=== PATIENT | male | born 1950 | race Caucasian/White ===

== ENCOUNTER 2024-05-24 18:34 | Emergency (ER) | payer OTHER, SELFPAY ==
[2024-05-24 18:35] VITALS: BP 166/89; PULSE 78; RESP 18; TEMP 36.9; O2SAT 97; BMI 26.4
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
[2024-05-24 19:47] VITALS: BP 144/82; PULSE 68; RESP 18; TEMP 36.6; O2SAT 96
[2024-05-24] MEDS: Diphth,Pertuss(Acell),Tet Vac 0.5 ML Vial IM (19:52)
[2024-05-24] MEDS: BACITRACIN 15 GM Tube 1 APPLIC TOPICAL (19:52)
[2024-05-24] MEDS: HYDROcodone Bitartrate/Apap 5/325 Tablet PO (19:53)
== END 2024-05-24 20:18 | disposition home or self-care (01) ==
PROVIDERS: Emergency Provider Emergency Medicine; PCP Internal Medicine; Visit Provider Emergency Medicine
DX: T20.23XA Burn of second degree of chin, initial encounter (principal); T22.211A Burn of second degree of right forearm, initial encounter; T22.212A Burn of second degree of left forearm, initial encounter; T24.291A Burn of second degree of multiple sites of right lower limb, except ankle and foot, initial encounter; T24.292A Burn of second degree of multiple sites of left lower limb, except ankle and foot, initial encounter; E78.00 Pure hypercholesterolemia, unspecified; Z23 Encounter for immunization; X08.8XXA Exposure to other specified smoke, fire and flames, initial encounter
CPT/HCPCS: 90471; 90715; 99284

== ENCOUNTER → 2024-06-19 | Outpatient (CLI) | payer OTHER, SELFPAY ==
[2024-06-19 16:15] LABS: Free T3 2.4 pg/mL (2.18-3.98); T4 Free Direct 1.01 ng/dL (0.76-1.46)
== END | disposition home or self-care (01) ==
LOC: LAB 14:38
PROVIDERS: PCP Internal Medicine
DX: E03.9 Hypothyroidism, unspecified (principal)
CPT/HCPCS: 36415; 84439; 84443; 84481

== ENCOUNTER 2025-03-20 07:08 | Observation (INO) | payer MEDICARE, SELFPAY ==
[2025-03-08 08:20] LABS: Hematocrit 43.8 % (40-54); Hemoglobin 14.6 g/dL (13.0-16.5); Mean Corp Hgb Conc 33.3 g/dL (32-36); Mean Corpuscular Volume 92.2 fL (80-94); Mean Platelet Vol. 9.3 fl (6.2-12.0); Platelet Count 264 K/mm3 (150-450); RBC Distribution Width CV 11.9 % (11.6-14.6); RBC Distribution Width SD 40.3 fl (35.1-43.9); Red Blood Count 4.75 M/mm3 (4.6-6.2); White Blood Count 6.4 K/mm3 (4.4-11.0)
[2025-03-08 09:44] LABS: Anion Gap 12 (5-15); BUN 13 mg/dL (4-19); BUN/Creat Ratio 12.8 RATIO (10-20); Calcium,Total 9.0 mg/dL (7.6-11.0); Carbon Dioxide 25.3 mmol/L (21.0-32.0); Chloride 103 mmol/L (98-108); Glucose 98 mg/dL (70-99); Potassium 3.9 mmol/L (3.3-5.1)
--- NOTE | 2025-03-11 07:53 | PAT.ANE_ITS ---
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 When Was Last Pacemaker Check QUESTION #4 FULL TEXT: You/Your Family Experience fever (hyperthermia) with Anesthesia Last Oral Intake Last Oral intake: Last Oral Intake NPO since Meds taken in AM with sips of water? Meds patient instructed to take am of surgery PONV PONV - social work instructor: PONV - social work instructor Female No 03/06/25 08:16 HX of Motion Sickness No 03/06/25 08:16 HX of N/V After Surgery No 03/06/25 08:16 Non-Smoker Yes 03/06/25 08:16 Duration of Surgery greater No 03/06/25 08:16 than 60 minutes Number of Risk Factors 1 03/06/25 08:16 PONV Score Low Risk 03/06/25 08:16 Height & Weight Height & Weight: Anesthesia: Height & Weight Height 5 ft 10 in 05/24/24 18:35 Respiratory Assessment Respiratory Assessment - social work instructor: Respiratory Tract Infection Hx - social work instructor Hx Respiratory Tract Infection No 03/06/25 08:16 STOP Sleep Apnea STOP Sleep Apnea - social work instructor: STOP Sleep Apnea - social work instructor Hx Hypertension No 03/06/25 08:16 Hx Sleep Apnea No 03/06/25 08:16 CPAP BIPAP Do you snore loudly (louder No 03/06/25 08:16 than talking or can be heard Do you often feel tired/ No 03/06/25 08:16 fatigued/ sleepy during daytime? Has anyone observed you stop No 03/06/25 08:16 breathing during sleep? STOP Results Negative 03/06/25 08:16 QUESTION #5 FULL TEXT : Do you snore loudly (louder than talking or can be heard through closed doors)? 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 Specify any problems Hx of Preganancy in last 3 N/A 03/06/25 08:16 Months Nurse Filling Out Transfusion [facility] 03/06/25 08:16 & Questions: Date: 03/06/25 03/06/25 08:16 Time: 08:24 03/06/25 08:16 Patient unable to answer at this time (ie. confused, unrespo /Reproduction History /Reproductive History - social work instructor: /Reproductive Hx- social work instructor Hx Now No 03/06/25 08:16 Gestational Age (in weeks): EDC: Hx Hx Para Hx Section [facility] Medical History Wears hearing aid Wears glasses Marijuana use Thyroid disease Prostate disease High cholesterol Gastric reflux Non-smoker History of stress test Hard of hearing Hypercholesteremia Depression PTSD (post-traumatic stress disorder) Arthritis Prostate CA Home Medications ?Medication ?Instructions ?Recorded ?Last Taken ?Type citalopram 10 mg tablet (Celexa) 10 mg PO DAILY Unknown History levothyroxine 100 mcg capsule 100 mcg PO DAILY 5 Unknown History rosuvastatin 10 mg tablet (Crestor) 10 mg PO DAILY Unknown History Allergy/AdvReac Type Severity Reaction Status Date / Time No Known Allergies Allergy Verified 03/06/25 08:14 Surgical History History of appendectomy Social History Smoking Status: Never smoker Audit: Pertinent Findings Pertinent Findings EKG Perinent findings: March 08, 2025. Sinus bradycardia with occasional PVCs. Septal infarct, age undetermined. Recommendation Anesthesia Recommendation Anesthesia recommendation: OPTIMIZED for anesthesia
[2025-03-20] VITALS (12 sets, daily range): BP systolic 110–151; BP diastolic 67–86; PULSE 62–102; RESP 16–18; TEMP 35.4–37.1; O2SAT 94–100; BMI 27.5
--- OUTSIDE RECORDS SUMMARY | 2025-03-20 05:53 | XMS RPT_ITS | CCD ---
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 Date: 02/08/2023 (No Known Allergies) Date Reviewed: 05/08/2020 Reviewed by: Dav Reddy - Fully Assessed Reason for Visit: Population Health Navigation Outreach [3910] Cmt: [employer] Care Gaps Prescriptions as of 02/08/2023 - meloxicam (MOBIC) 15 mg tablet Take 1 tablet by mouth once daily. - tiZANidine (ZANAFLEX) 4 mg tablet Take half to one tablet at bedtime as needed - TRAMADOL HCL (TRAMADOL ORAL) Take by mouth every 6 hours as needed. - simvastatin 20 mg tablet Take 20 mg by mouth daily at bedtime. - citalopram 20 mg tablet Take 20 mg by mouth once daily. - levothyroxine (LEVOTHROID) 88 mcg tablet Take 88 mcg by mouth daily before breakfast. - Lysine (L-LYSINE) 500 mg Cap Take by mouth. 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 Author Type: Gasket Maker Type: Progress Notes Filed: 02/08/2023 10:02 AM Note Text: POPULATION HEALTH NAVIGATION OUTREACH Action/FYI Verify PCP [facility] Patient Identified by Name and : YES, via phone Outreach Outcome/Action Spoke to patient / parent / legal guardian: Patient declined PCP field updated Did you use a PCP flex slot to schedule this appointment? N/A Reason for Outreach Care Gap or Scheduling/Wellness visits Payer: No coverage found. Care Gap Reviewed:: Annual Wellness visit Colorectal Cancer Screening Advance Directive Reminder: Reminder note to check Health Maintenance for items below Health Maintenance items due: ABDOMINAL AORTIC ANEURYSM SCREENING Never done HEPATITIS C SCREENING Never done DTAP,TDAP,TD(1 - Tdap) Never done SHINGRIX VACCINE(1 of 2) Never done PNEUMOCOCCAL: 65+(1 - PCV) Never done COLORECTAL CANCER SCREENING due on 02/14/2014 DIABETES SCREEN due on 02/07/2015 LIPID SCREEN due on 02/07/2017 COVID-19 VACCINE(4 - Booster for Pfizer series) due on 08/18/2021 ADVANCE DIRECTIVE DISCUSSION Never done DEPRESSION ASSESSMENT Never done Navigation Signature: Savita Hubbard MA February 08, 2023 9:20 AM [facility] History of Present illness Narrative 02-08-2023 Savita Hubbard MA - 02/08/2023 9:20 AM EDT Note Date & Type Note Facility 02-08-2023 History of Presen t illness Narrative POPULATION HEALTH NAVIGATION OUTREACH Action/FYI Verify PCP [facility] - PCP updated Patient Identified by Name and : YES, via phone Outreach Outcome/Action Spoke to patient / parent / legal guardian: Patient declined PCP field updated Did you use a PCP flex slot to schedule this appointment? N/A Reason for Outreach Care Gap or Scheduling/Wellness visits Payer: No coverage found. Care Gap Reviewed:: Annual Wellness visit Colorectal Cancer Screening Advance Directive Reminder: Reminder note to check Health Maintenance for items below Health Maintenance items due: ABDOMINAL AORTIC ANEURYSM SCREENING Never done HEPATITIS C SCREENING Never done DTAP,TDAP,TD(1 - Tdap) Never done SHINGRIX VACCINE(1 of 2) Never done PNEUMOCOCCAL: 65+(1 - PCV) Never done COLORECTAL CANCER SCREENING due on 02/14/2014 DIABETES SCREEN due on 02/07/2015 LIPID SCREEN due on 02/07/2017 COVID-19 VACCINE(4 - Booster for Pfizer series) due on 08/18/2021 ADVANCE DIRECTIVE DISCUSSION Never done DEPRESSION ASSESSMENT Never done Navigation Signature: Savita Hubbard MA February 08, 2023 9:20 AM documented in this encounter [facility] Clinical Note 12-09-2022 Note Date & Type Note Facility 12-09-2022 Note Patient Outreach (NE TNAV) THOM RAPP ([id number]) 1950 M Date Time Provider Department 12/09/22 JONELLE RAMÍREZ During your visit today, we recorded the following information about you: Jonelle Ramírez 12/09/2022 11:44 AM Signed POPULATION HEALTH NAVIGATION OUTREACH Action/FYI Need to confirm pcp Left message to review health maintenance. My chart not activated Patient Identified by Name and : NO Outreach Outcome/Action Unable to reach patient: Left message Did you use a PCP flex slot to schedule this appointment? N/A Reason for Outreach Care Gap or Scheduling/Wellness visits Payer: No coverage found. Care Gap Reviewed:: Annual Wellness visit Colorectal Cancer Screening Reminder: Reminder note to check Health Maintenance for items below Health Maintenance items due: ABDOMINAL AORTIC ANEURYSM SCREENING Never done COVID-19 VACCINE(1) Never done HEPATITIS C SCREENING Never done DTAP,TDAP,TD(1 - Tdap) Never done SHINGRIX VACCINE(1 of 2) Never done PNEUMOCOCCAL: 65+(1 - PCV) Never done COLORECTAL CANCER SCREENING due on 02/14/2014 DIABETES SCREEN due on 02/07/2015 LIPID SCREEN due on 02/07/2017 ADVANCE DIRECTIVE DISCUSSION Never done DEPRESSION ASSESSMENT Never done Navigation Signature: Jonelle Ramírez December 09, 2022 11:43 AM Allergies As of Date: 12/09/2022 (No Known Allergies) Date Reviewed: 05/08/2020 Reviewed by: Dav Reddy - Fully Assessed Reason for Visit: Population Health Navigation Outreach [3910] Cmt: [employer] care gap Prescriptions as of 12/09/2022 - meloxicam (MOBIC) 15 mg tablet Take 1 tablet by mouth once daily. - tiZANidine (ZANAFLEX) 4 mg tablet Take half to one tablet at bedtime as needed - TRAMADOL HCL (TRAMADOL ORAL) Take by mouth every 6 hours as needed. - simvastatin 20 mg tablet Take 20 mg by mouth daily at bedtime. - citalopram 20 mg tablet Take 20 mg by mouth once daily. - levothyroxine (LEVOTHROID) 88 mcg tablet Take 88 mcg by mouth daily before breakfast. - Lysine (L-LYSINE) 500 mg Cap Take by mouth. 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 Author Type: ? Type: Progress Notes Filed: 12/09/2022 11:44 AM Note Text: POPULATION HEALTH NAVIGATION OUTREACH Action/FYI Need to confirm pcp Left message to review health maintenance. My chart not activated Patient Identified by Name and : NO Outreach Outcome/Action Unable to reach patient: Left message Did you use a PCP flex slot to schedule this appointment? N/A Reason for Outreach Care Gap or Scheduling/Wellness visits Payer: No coverage found. Care Gap Reviewed:: Annual Wellness visit Colorectal Cancer Screening Reminder: Reminder note to check Health Maintenance for items below Health Maintenance items due: ABDOMINAL AORTIC ANEURYSM SCREENING Never done COVID-19 VACCINE(1) Never done HEPATITIS C SCREENING Never done DTAP,TDAP,TD(1 - Tdap) Never done SHINGRIX VACCINE(1 of 2) Never done PNEUMOCOCCAL: 65+(1 - PCV) Never done COLORECTAL CANCER SCREENING due on 02/14/2014 DIABETES SCREEN due on 02/07/2015 LIPID SCREEN due on 02/07/2017 ADVANCE DIRECTIVE DISCUSSION Never done DEPRESSION ASSESSMENT Never done Navigation Signature: Jonelle Ramírez December 09, 2022 11:43 AM [facility] History of Present illness Narrative 12-09-2022 Jonelle Ramírez - 12/09/2022 11:42 AM EDT Note Date & Type Note Facility 12-09-2022 History of Presen t illness Narrative POPULATION HEALTH NAVIGATION OUTREACH Action/FYI Need to confirm pcp Left message to review health maintenance. My chart not activated Patient Identified by Name and : NO Outreach Outcome/Action Unable to reach patient: Left message Did you use a PCP flex slot to schedule this appointment? N/A Reason for Outreach Care Gap or Scheduling/Wellness visits Payer: No coverage found. Care Gap Reviewed:: Annual Wellness visit Colorectal Cancer Screening Reminder: Reminder note to check Health Maintenance for items below Health Maintenance items due: ABDOMINAL AORTIC ANEURYSM SCREENING Never done COVID-19 VACCINE(1) Never done HEPATITIS C SCREENING Never done DTAP,TDAP,TD(1 - Tdap) Never done SHINGRIX VACCINE(1 of 2) Never done PNEUMOCOCCAL: 65+(1 - PCV) Never done COLORECTAL CANCER SCREENING due on 02/14/2014 DIABETES SCREEN due on 02/07/2015 LIPID SCREEN due on 02/07/2017 ADVANCE DIRECTIVE DISCUSSION Never done DEPRESSION ASSESSMENT Never done Navigation Signature: Jonelle Ramírez December 09, 2022 11:43 AM documented in this encounter [facility] Summary Purpose Family History No Family History Records FoundNo Family History Records FoundNo Family History Records Found Advance Directives No Advanced Directives Records FoundNo Advanced Directives Records FoundNo Advanced Directives Records Found Additional Source Comments (unrecognized sect ion and content) No Status Records FoundNo Status Records FoundNo Status Records Found INFORMATION SOURCE (unrecogn ized section and content) DATE CREATED AUTHOR 05/25/2019 [facility] DATE CREATED AUTHOR AUTHOR'S ORGANIZ ATION 02/09/2023 [facility] DATE CREATED AUTHOR AUTHOR'S ORGANIZ ATION 03/15/2025 [facility] Source Comments (unrecognize d section and content) In the event this informatio n is protected by the Federal Confidentiality of Alcohol and Drug Abuse Patient Records regulations: The Federal rules restrict any use of the information to criminally investigate or prosecute any alcohol or drug abuse patient.[facility] the event this information is protected by the Federal Confidentiality of Alcohol and Drug Abuse Patient Records regulations: The Federal rules restrict any use of the information to criminally investigate or prosecute any alcohol or drug abuse patient.[facility] Reason for Visit (unrecogniz ed section and content) Reason Onset Date Comments Population Health Navigation Outreach 12/09/2022 [employer] care gap Reason Onset Date Comments Population Health Navigation Outreach 02/08/2023 [employer] Care Gaps Care Teams (unrecognized sec tion and content) Nut Former Relationship Specialty Start Date End Date [facility] [address] [place] [address] PCP - General Internal Medicine 05/24/19 Nut Former Relationship Specialty Start Date End Date [facility] [address] [place] [address] PCP - General 02/08/23 FOR RECORDS PERTAINING TO PATIENTS WHO ARE OR HAVE BEEN ENROLLED IN A CHEMICAL DEPENDENCY/SUBSTANCEABUSE PROGRAM, SOME INFORMATION MAY BE OMITTED. This clinical summary was aggregated from multiple sources. Caution should be exercised in using it in the provision of clinical care. This summary normalizes information from multiple sources, and as a consequence, information in this document may materially change the coding, format and clinical context of patient data. In addition, data may be omitted in some cases. CLINICAL DECISIONS SHOULD BE BASED ON THE PRIMARY CLINICAL RECORDS. [facility] [employer] provides no warranty or guarantee of the accuracy or completeness of information in this document.
--- NOTE | 2025-03-20 06:35 | PRE.ANES_ITS ---
ASA Classification* ASA Classification ASA Classification: 2 Assessment & Plan Anesthesia* Anesthesia Assessment Anesthesia Assessment: Discussed sedation and/or anesthesia options, risks, benefits, and alternatives with patient/parents/legal guardian/POA. Questions invited. The patient/parents/legal guardian/POA seems to understand and agrees to proceed with anesthesia plan. Reviewed the physical assessment, medical history, allergy history and patient home medications list prior to surgery/procedure/anesthetic and documented any changes. Performed airway and anesthesia risk assessments. Anesthesia Type Anesthesia Type: General History Source History Obtained from:: Patient and Chart Anesthesia Focused Assessment* Airway Assessment Mouth opens: >3 cm Mallampati Score: II Teeth Condition: Intact Neck Range of motion (ROM): Limited ROM Labs Anesthesia Preop lab: CBC WBC 6.4 K/mm3 (4.4-11.0) 03/08/25 07:38 03/08/25 RBC 4.75 M/mm3 (4.6-6.2) 03/08/25 07:38 03/08/25 Hgb 14.6 g/dL (13.0-16.5) 03/08/25 07:38 03/08/25 Hct 43.8 % (40-54) 03/08/25 07:38 03/08/25 Plt Count 264 K/mm3 (150-450) 03/08/25 07:38 03/08/25 CHEMISTRY Potassium 3.9 mmol/L (3.3-5.1) 03/08/25 07:38 03/08/25 Sodium 140 mmol/L (133-145) 03/08/25 07:38 03/08/25 BUN 13 mg/dL (4-19) 03/08/25 07:38 03/08/25 Creatinine 1.04 mg/dL (0.70-1.20) 03/08/25 07:38 03/08/25 Glucose 98 mg/dL (70-99) 03/08/25 07:38 03/08/25 TSH 4.850 uIU/mL (0.300-4.200) H 03/08/25 07:38 COAG Pre-Assessment Diagnosis/Proposed Procedure Planned Operative Procedure(s): Lap Robotic Radical Prostatectomy Anesthesia History 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 When Was Last Pacemaker Check QUESTION #4 FULL TEXT: You/Your Family Experience fever (hyperthermia) with Anesthesia Last Oral Intake Last Oral intake: Last Oral Intake NPO since Meds taken in AM with sips of water? Meds patient instructed to take am of surgery PONV PONV - developmental mathematics professor: PONV - developmental mathematics professor Female No 03/06/25 08:16 HX of Motion Sickness No 03/06/25 08:16 HX of N/V After Surgery No 03/06/25 08:16 Non-Smoker Yes 03/06/25 08:16 Duration of Surgery greater No 03/06/25 08:16 than 60 minutes Number of Risk Factors 1 03/06/25 08:16 PONV Score Low Risk 03/06/25 08:16 Height & Weight Height & Weight: Anesthesia: Height & Weight Height 5 ft 10 in 05/24/24 18:35 Respiratory Assessment Respiratory Assessment - developmental mathematics professor: Respiratory Tract Infection Hx - developmental mathematics professor Hx Respiratory Tract Infection No 03/06/25 08:16 STOP Sleep Apnea STOP Sleep Apnea - developmental mathematics professor: STOP Sleep Apnea - developmental mathematics professor Hx Hypertension No 03/06/25 08:16 Hx Sleep Apnea No 03/06/25 08:16 CPAP BIPAP Do you snore loudly (louder No 03/06/25 08:16 than talking or can be heard Do you often feel tired/ No 03/06/25 08:16 fatigued/ sleepy during daytime? Has anyone observed you stop No 03/06/25 08:16 breathing during sleep? STOP Results Negative 03/06/25 08:16 QUESTION #5 FULL TEXT : Do you snore loudly (louder than talking or can be heard through closed doors)? Tobacco Use History Tobacco Use History - developmental mathematics professor: Tobacco Use History - developmental mathematics professor Tobacco Use Smoking Status Never smoker 03/06/25 08:16 Hx Tobacco Use No 03/06/25 08:16 Years Smoking Packs Smoked per Day Smoking Cessation Date was within the last 15 years Hx Smoking Cessation Date Hx Smoking Cessation Counseling Hematologic Medial History Hematologic Hx - developmental mathematics professor: Hematologic Medical Hx - certified caregiver Hx of Blood Transfusion No 03/06/25 08:16 Hx of Transfusion in last 3 No 03/06/25 08:16 Months Date of Last Transfusion (if within last 3 months) Ever experience any problems No 03/06/25 08:16 with transfusion(s)? Specify any problems Hx of Preganancy in last 3 N/A 03/06/25 08:16 Months Nurse Filling Out Transfusion VLEHPERTH AMBOY 03/06/25 08:16 & Questions: Date: 03/06/25 03/06/25 08:16 Time: 08:24 03/06/25 08:16 Patient unable to answer at this time (ie. confused, unrespo /Reproduction History /Reproductive History - developmental mathematics professor: /Reproductive Hx- developmental mathematics professor Hx Now No 03/06/25 08:16 Gestational Age (in weeks): EDC: Hx Hx Para Hx Section SAB Active Medications Active Medications: Current Medications Generic Name Dose Route Start Last Admin Trade Name Freq PRN Reason Stop Dose Admin Cefazolin Sodium 2 gm/ Sodium 110 mls @ 200 mls/hr 03/20/25 07:30 Chloride IV 03/20/25 08:02 INTRAOP ONE Lactated Ringer's 1,000 mls @ 15 mls/hr 03/20/25 06:15 IV .Q48H KIMI PFSH Medical History Wears hearing aid Wears glasses Marijuana use Thyroid disease Prostate disease High cholesterol Gastric reflux Non-smoker History of stress test Hard of hearing Hypercholesteremia Depression PTSD (post-traumatic stress disorder) Arthritis Prostate CA Home Medications ?Medication ?Instructions ?Recorded ?Last Taken ?Type citalopram 10 mg tablet (Celexa) 10 mg PO DAILY 03/19/25 History levothyroxine 100 mcg capsule 100 mcg PO DAILY 5 03/19/25 History rosuvastatin 10 mg tablet (Crestor) 10 mg PO DAILY 03/19/25 History Allergy/AdvReac Type Severity Reaction Status Date / Time No Known Allergies Allergy Verified 03/20/25 06:16 Surgical History History of appendectomy Social History Smoking Status: Never smoker Review of Systems (Anesthesia) ROS Narrative System reviewed and no additional complaints, except as documented.
[2025-03-20] MEDS: Lactated Ringers 1,000 ML 15 ML IV (06:54)
--- NOTE | 2025-03-20 07:09 | PCM.HP.STD ---
HPI - General General Date of Admission: 03/20/25 Chief Complaint: Prostate cancer HPI Narrative THOM RAPP, is a 74 M who presents for a robotic radical prostatectomy with Retzius sparing approach. [facility] Medical History (Updated 03/20/25 @ 07:[address] Jeffery Candelario MD) Wears hearing aid Wears glasses Marijuana use Thyroid disease Prostate disease High cholesterol Gastric reflux Non-smoker History of stress test Hard of hearing Hypercholesteremia Depression PTSD (post-traumatic stress disorder) Arthritis Prostate CA Home Medications ?Medication ?Instructions ?Recorded ?Last Taken ?Type citalopram 10 mg tablet (Celexa) 10 mg PO DAILY 03/06/25 03/19/25 History levothyroxine 100 mcg capsule 100 mcg PO DAILY 03/06/25 03/19/25 History rosuvastatin 10 mg tablet (Crestor) 10 mg PO DAILY 03/06/25 03/19/25 History ciprofloxacin HCl 500 mg tablet 500 mg PO BID #20 tabs 03/20/25 Unknown Rx (Cipro) docusate sodium 100 mg capsule 100 mg PO BID #20 caps 03/20/25 Unknown Rx (Colace) oxycodone 5 mg tablet 5 mg PO Q6H PRN pain 7 days #20 03/20/25 Unknown Rx tabs Allergy/AdvReac Type Severity Reaction Status Date / Time No Known Allergies Allergy Verified 03/20/25 06:16 Surgical History History of appendectomy Social History Smoking Status: Never smoker Vital Signs Vital Signs Vital Signs: 03/20/25 06:18 03/20/25 06:18 Temperature 98.0 F Temperature Source Temporal Pulse Rate 62 Respiratory Rate 18 Respiratory Pattern Normal Blood Pressure 143/86 H Blood Pressure Mean 105 Blood Pressure Source Monitor Blood Pressure Position Semi-Fowlers Blood Pressure Location Right Arm Pulse Ox 98 Oxygen Delivery Method Room Air Weight Weight: 87 kg Body Mass Index (BMI) 27.5 Results Lab / Micro Data 03/08/25 07:38 03/08/25 07:38
--- NOTE | 2025-03-20 07:30 | PROST_PTH ---
PATIENT: THOM RAPP LOC: MS3 U#:[id number] AGE/SX: 74/M ROOM: PA312 RE03/20/[address]: Dr. Jeffery Candelario MD : [id number] BED: 1 DIS: 03/22/2025 SPEC #: [id number] RECD: 03/20/25 14:33 STATUS: CODY ALVAREZ #: [id number] ALYCIA: 03/20/25 07:[address]: Jeffery Candelario DEPT: SURGICAL PATHOLOGY RECD BY: Satnam James ENTERED: 03/20/25 15:09 SP TYPE: PROSTATE OTHR DR: Vivian Vance MD Tissues: A - Urinary bladder, NOS B - Prostate, NOS Procedures: Immunohistochemical Stains Surgery Specimen Level IHC Stain ADDITIONAL HEADER OPERATION: Laparoscopic robotic radical prostatectomy PRE-OP DIAGNOSIS: Prostate cancer TISSUE SUBMITTED: A- Bladder neck tissue, B- Prostate MICROSCOPIC DIAGNOSIS A. Soft tissue, bladder, neck, excision: - Fibroadipose tissue with focal skeletal muscle, negative for malignancy. B. Prostate, radical prostatectomy: - Adenocarcinoma Calvin 3+4=7 (approximately 20% grade 4), involving 15% of the specimen - see Synoptic Report. - Tumor is present at the posterior and left side surgical margins. - Perineural invasion identified. 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 SYNOPTIC REPORT FOR CARCINOMA OF THE PROSTATE: Procedure:?RADICAL PROSTATECTOMY Histologic type:?ACINAR Calvin score:?3+4=7 Grade group (1-5):?2 % pattern 4 in Héctor 3+4=7 (na=not applicable):?20% % tumor:?15% of the specimen ? Tumor extent (N=no, Y=yes, NA=not applicable):? Extraprostatic extension (F=focal, M=multifocal):?M (there is multifocal extension of tumor to the surgical margin at multiple levels of the left prostate, suggesting extra-prostatic extension) ? Location of extraprostatic extension:?positive margins noted at posterior/left side in slices 2, 3 and 4 (apex=slice 1, base=slice 7) ?? Microscopic invasion of bladder neck:?N ?? Seminal vesicle muscle wall invasion:?N ? Margins (N=negative, P=positive, NA=not applicable):?P ?? Distance of tumor to closest margin (cm):?0 ?? Longest contiguous positive margin (cm):?2.0 cm ?? Positive margin location (apex, bladder neck, mid): posterior/left side of apex to mid-prostate ? Regional lymph nodes (NA=not applicable): NA ?? Number examined:?0 ?? Number positive:?NA ? Additional findings (lymphovascular invasion, therapy effect, cribriform glands, intraductal carcinoma):?perineural invasion identified; intraductal carcinoma with cribriform glands present. pTNM:?pT3a NX Comments: PIN4 IHC highlights the intraductal carcinoma with cribriform architecture. ? Grade Group Definitions 1=Héctor 5-6, 2=Calvin 3+4=7; 3=Héctor 4+3=7, 4=Héctor 8; 5=Calvin 9-10 ? Pathologic Staging Definitions (pTNM) Primary Tumor (pT) pT2:? Organ confined pT3a:?? Extraprostatic extension (focal is <1 high power field in 1-2 slides, multifocal is more) or Microscopic invasion of bladder neck (in thick muscle, no adjacent non-neoplastic glands) pT3b:?? Seminal vesicle muscle wall invasion pT4:? Invasion of external sphincter, rectum, bladder, levator muscles or pelvic wall Regional Lymph Nodes (pN) (periprostatic, pelvic, hypogastric, obturator, fossa of Marcille, internal iliac, external iliac, sacral) pNX:? Cannot be assessed pN0:? No regional lymph node metastasis pN1:? Regional lymph node metastasis Distant Metastasis (pM) unknown pM1a:?? Metastasis in non-regional lymph node (ex: aortic, common iliac, caval, deep inguinal, superficial inguinal, retroperitoneal) pM1b:?? Metastasis in bone pM1c:?? Metastasis in other distant site ? The above synoptic report complies, in slightly modified form, with the guidelines of the [employer] and the Association of Directors of Anatomic and Surgical Pathology for the reporting of cancer specimens ? MICROSCOPIC DESCRIPTION Slides are reviewed. ?All matched controls reacted appropriately. These tests were developed and their performance characteristics determined by [facility]. They may not have been cleared or approved by the U.S. Food and Drug Administration. The FDA has determined that such clearance or approval is not necessary.? The above immunohistochemical?markers and/or special stains have been reviewed by the Pathologist. GROSS DESCRIPTION Received in 2 formalin containers labeled with the patient's name and date of . Designated as: A. Bladder neck tissue is a 1.9 x 1.6 x 0.5 cm irregular, heavily cauterized tissue fragment. Entirely submitted in 1 cassette. B. Prostate is a 20.8 g radical prostatectomy with attached bilateral adnexa, measuring 3.6 (LR) x 3.5 (AB) x 2.8 (AP) cm. There are multiple full-thickness capsular defects, bilaterally. The specimen is inked as follows: Left: BlueRight: GreenPosterior: Black The specimen is serially sectioned from apex to base into 7 slices revealing trotter-yellow to white, spongy parenchyma with 2 firm white nodules as follows: Left nodule: Spans slices #3-#4, located in the left, posterior aspect of the mid prostate, abuts the capsule; it measures 0.8 x 0.8 x 0.7 cm.Right nodule: Spans slices #3-#4, located in the right posterior aspect of the mid prostate, located 0.2 cm from the capsule; it measures 0.6 x 0.5 x 0.4 cm The left and right seminal vesicles/vasa deferentia measure as follows:Left vas deferens: 2.3 x 0.4 cmLeft seminal vesicle: 3.1 x 1.1 x 0.7 cmRight vas deferens 3.6 x 0.4 cmRight seminal vesicle: 3.0 x 1.5 x 0.8 cm The specimen is entirely submitted, sequentially from apex to base as follows: B1-B3: Slice #1, apexB4-B6: Slice #2B7: Slice #3, left noduleB8: Slice #3, right noduleB9: Slice #4, left cppindD68: Slice #4, right rcmwnjT82: Slice #4, remainder of the nxhsdA19-F90: Slice #5, thinned B16-B19: Slice #6, awbwsemO63-T63: Slice #7, right bladder qppbA74-Q22: Slice #7, left bladder baseB24: Tissue fragments (friable on sectioning)B25: Left vas deferens, serially cchdfmiojQ06: Left seminal jgmfnraV05: Right vas deferens, serially nadcxmxegO64-34: Right seminal vesicle CA 03/21/2025 CPT:85572,72781,86819
[2025-03-20 12:00] LABS: Hematocrit 34.0 % (40-54); Hemoglobin 11.1 g/dL (13.0-16.5)
--- NOTE | 2025-03-20 12:51 | PCM.OPRPT ---
Operative Report (Standard) Operative Information Date of Procedure: 03/20/25 Pre-Operative Diagnosis: Prostate cancer Post-Operative Diagnosis: The same Surgery/Procedure Performed: Laparoscopic robotic assisted radical prostatectomy procurement inspector: No Type of Anesthesia: General RN Documented Start/Stop Times: Operation Date: 03/20/25 07:30 Case Time Into Pre-Op 03/20/25 06:00 Out of Pre-Op 03/20/25 07:25 Anesthesia Start 03/20/25 07:30 Into Room 03/20/25 07:30 Procedure Start 03/20/25 08:04 Procedure End 03/20/25 12:52 Procedure Start Time: 08:04 Procedure Stop Time: 12:54 Select all DRAINS/GRAFTS/IMPLANTS that apply: Drains Drain details: Chisholm drained, AUDELIA drains x 2 Estimated Blood Loss: 1200 cc Specimen collected: Yes Description of specimen(s) removed: Prostate bladder neck tissue Description of surgery: This is a 74-year-old male who has [place] 7 prostate cancer elevated PSA he has had a PET scan done and demonstrated the cancers within the prostate had not spread and he wishes to have definitive treatment so organ to proceed with a robotic radical prostatectomy Argun to try to do a nerve sparing and also bladder neck sparing as much as possible he understands with the surgery there is a risk of bleeding infection there is a risk of urinary incontinence and loss of bladder control and also loss of erections. Patient was taken back to the operating room after smooth induction of anesthesia he was placed supine on the table he was intubated 2 IVs were secured he was pressure all the pressure points were padded he was placed on the table we then went into above the umbilicus about 2 cm above the Mikus but a camera port trocar and we insufflated the abdomen CO2 gas right arm left arm second left arm and then air seal port and a suction port the patient was placed in steep Trendelenburg the robot was docked and we proceeded with the approach today I was going to do a Retzius sparing approach without drop in the bladder it was quite a difficult since he had a very large floppy colon sigmoid colon at the dissected soft the lateral wall sinus possible to retract it is much as possible but still the colon was floppy in the way so I do use the fourth on the hold this out the beginning the case we used to keep needle to hold up the bladder by tenting of the bladder with Phil needles then dissected below the prostate identified the vas deferens, vesicles dissected below the prostate and the rectum and then was able to get in the plane between the prostate and the rectum and then dissected laterally was able to sweep the neurovascular tissues laterally off the prostate was very stuck on the left side had to do a more wider dissection to make sure I got all the prostate tissue out in the left state left side came out very stuck it on the right side came out really nicely and then proceeded with the dissection then ran into some heavy bleeding from the dorsal vein this led to our significant blood loss after holding pressure and then finally with some stitches we able to control his dorsal vein bleeding but would lose about 1200 cc of blood loss at this point. Finally get this controlled and can visualize better then I did the dissection between the bladder neck and the prostate then dissected between the prostate and the anterior bladder until I get the urethra circumferentially dissected the urethra and then transected the urethra and the Chisholm catheter was then put through the urethra I then started with the anastomosis was able to get the stitches into the anterior bladder neck to the anterior urethra but is extremely difficult the urethra retracted a lot we tried to do perineal pressure but really could not get good stitches in the posterior urethra as we do any anastomosis I could not get a good stitch in the posterior urethra and then kept pulling through and tearing this made situation worse so at this point was not able to complete the anastomosis in the current situation so decided to drop the bladder so then we ended up dropping the bladder created the space of Retzius throughout the bladder down completely transected through the dorsal vein complex and then suture-ligated the dorsal vein complex and then at this point then opened up the bladder neck was able to see the bladder neck better and then I did that we did the anastomosis then with a drop bladder bladder on tension and anastomosis using a running V-Loc stitch starting from the 6 o'clock position running all the way circumferentially to the 12 o'clock position certainly was not watertight with the prior stitching and the pulling through this made the tissue very friable extremely difficult anastomosis after the 2 edges were brought together certainly was not watertight but enough to bring the edges together I then was able to put the [place]m across and then left the [place] in with 10 cc in the [place] tip Chisholm we then placed a AUDELIA drain above and below the anastomosis because the again it was a very difficult anastomosis with minor leakage we did do a flush that the bladder did fill but I think there was a minor minor leakage but there is no way to control that so I just left a AUDELIA drain above and below and then we undocked the robot we we did retacked the bladder back up to the anterior abdominal wall and then the patient's anesthetic was reversed we extracted the prostate through the's midline incision and then took out all the trocars let both drains in place patient ascetic is being reversed taken back to PACU in good condition we did check a hemoglobin during the case and hemoglobin was stable at 11. Patient was extubated taken back to PACU in stable condition again the difficulty in his case was extremely difficult anastomosis that they had to redo a second time at the drop the bladder down and over the do the anastomosis was making the case extra longer. But the patient was stable taken back to PACU in good condition. Surgical Findings: Very difficult anastomosis at the drop the bladder down to complete the anastomosis very friable tissue extremely difficult anastomosis Complications Complications: No Admit VTE Documentation VTE Present on Admission: No VTE Mechan Device Prophylaxis: SCD's VTE Pharm Prophylaxis ordered?: No
--- NOTE | 2025-03-20 13:18 | PCM.DC ---
Discharge Instructions DC O2, CPAP, BIPAP needs Home O2 Discharge instructions: No Dressing / Incision Discharge Activity: May Not Drive and May Shower Return to work on:: 04/24/25 May shower in (days): 1 Weight Bearing Status: Weight bearing as tolerated Dressing / Incision Call your doctor if your incision/area has: Continuous Slow Oozing and Sudden Increased Bleeding Call your doctor if you observe: Fever of 101 or Higher, Inability to have a bowel movement and Uncontrolled pain Suture Line Care: Avoid Pulling/Pushing and Avoid Pinching/Bending Cleanse incision/area with: Soap & Water Catheter: [place] to leg bag and [place] to large bag Drain: [place] Additional Dressing/Incision Instructions:: AUDELIA drains to suction, drain daily and record amounts Follow Up Care Please Follow Up With: Jeffery Candelario MD When: next week call office for appt. Test Results: Test results from this visit will be discussed in further detail at your follow-up appointment, if applicable. Discharge Plan Admission Admit Date/Time: 03/20/25 07:08 Primary Reason for Your Visit: Radical Prostatectomy Attending Provider: Jeffery Candelario Primary Care Provider: Vivian Vance Discharge Orders/Prescriptions Prescriptions: New ciprofloxacin HCl [Cipro] 500 mg tablet 500 mg PO BID Qty: 20 0RF docusate sodium [Colace] 100 mg capsule 100 mg PO BID Qty: 20 0RF oxycodone 5 mg tablet 5 mg PO Q6H PRN (Reason: pain) 7 Days Qty: 20 0RF Continued levothyroxine 100 mcg capsule 100 mcg PO DAILY citalopram [Celexa] 10 mg tablet 10 mg PO DAILY rosuvastatin [Crestor] 10 mg tablet 10 mg PO DAILY Other Ambulatory Orders: 12 Lead EKG (Routine) Timeframe: 20250308 Location: None Selected Ordered By: Dr. Tam Green Referrals / Follow Up: Jeffery Candelario MD [Med Staff - Active Staff] - Vivian Vance MD [Primary Care Provider] -
--- NOTE | 2025-03-20 13:23 | PCM.POST.ANE ---
Anesthesia: Postop Eval I Current Vital Signs Temperature: 97.1 F Pulse Rate: 63 Blood Pressure: 129/84 Respiratory Rate: 16 Pulse Ox: 99 Oxygen Delivery Method: Room Air Assessment Airway patent: Yes Spontaneous unlabored respirations: Yes Mental status: Awake and Calm nausea: No Vomiting: No Anesthesia Complication: No Fluid Hydration Crystalloid volume administer (ml): 3,800 Total IV fluid infused: 3,800 Progress Note Anesthesia document: Postop Eval 1 completed: Yes
[2025-03-20] MEDS: 0.9% Saline Lock 10 ML Syringe IV (14:28)
[2025-03-20] MEDS: 0.9% Normal Saline (1000mL) 1,000 ML 125 ML IV (14:44)
[2025-03-21] MEDS: 0.9% Normal Saline (1000mL) 1,000 ML 125 ML IV (00:14)
[2025-03-21 02:00] VITALS: BP 117/65; PULSE 89; RESP 16; TEMP 37.1; O2SAT 95
[2025-03-21 06:00] VITALS: BP 114/63; PULSE 88; RESP 16; TEMP 36.8; O2SAT 94
[2025-03-21 06:19] LABS: Hematocrit 30.4 % (40-54); Hemoglobin 9.9 g/dL (13.0-16.5); Immature Granulocytes Count 0.050 X10^3/uL (0.0-0.0); Mean Corp Hgb Conc 32.6 g/dL (32-36); Mean Corpuscular Volume 94.1 fL (80-94); Mean Platelet Vol. 9.3 fl (6.2-12.0); NRBC Flagged by Analyzer 0 % (0-5); Platelet Count 227 K/mm3 (150-450); RBC Distribution Width CV 12.1 % (11.6-14.6); RBC Distribution Width SD 41.4 fl (35.1-43.9); Red Blood Count 3.23 M/mm3 (4.6-6.2); White Blood Count 11.6 K/mm3 (4.4-11.0)
[2025-03-21 06:49] LABS: Anion Gap 12 (5-15); BUN 15 mg/dL (4-19); BUN/Creat Ratio 13.8 RATIO (10-20); Calcium,Total 8.0 mg/dL (7.6-11.0); Carbon Dioxide 21.1 mmol/L (21.0-32.0); Chloride 107 mmol/L (98-108); Estimated Creatinine Clearance 61.22 ml/min (50-250); Glucose 125 mg/dL (70-99); Potassium 4.4 mmol/L (3.3-5.1)
--- NOTE | 2025-03-21 07:17 | PN.URO_ITS ---
Subjective Subjective Postoperative day #1 status post radical prostatectomy, doing well AUDELIA outputs are low advance diet as regular as tolerated ambulate Hep-Lock IV fluids and probably keep him 1 more day probably plan for discharge tomorrow with the AUDELIA drains and will remove the drains next week in the office Objective Data Objective Data Vital Signs: Vital Signs Temp Pulse Resp BP Pulse Ox O2 Del Method 98.7 F 89 16 117/65 95 Room Air 03/21/25 02:00 03/21/25 02:00 03/21/25 02:00 03/21/25 02:00 03/21/25 02:00 03/21/25 02:00 Oxygen Delivery Method Room Air Weight: 87 kg Body Mass Index (BMI) 27.5 Intake & Output: Intake and Output for Last 24 Hours 03/19/25 03/20/25 03/21/25 23:59 23:59 23:59 Intake Total 5121.25 / 5121.25 Output Total 3280 / 3280 572 / 572 Balance 1841.25 / 1841.25 -572 / -572 Lab / Micro Data 03/21/25 05:32 03/21/25 05:32 Labs: Laboratory Results - last 24 hr 03/08/25 07:38: Blood Type A POSITIVE, Antibody Screen NEGATIVE, Crossmatch See Detail 03/20/25 11:27: Hgb 11.1 L, Hct 34.0 L 03/21/25 05:32: WBC 11.6 H, RBC 3.23 L, Hgb 9.9 L, Hct 30.4 L, MCV 94.1 H, MCH 30.7, MCHC 32.6, RDW Std Deviation 41.4, RDW Coeff of Emeka 12.1, Plt Count 227, MPV 9.3, Immature Gran % (Auto) 0.400, Neut % (Auto) 75.5 H, Lymph % (Auto) 14.4 L, [place] % (Auto) 9.5, Eos % (Auto) 0.0, Baso % (Auto) 0.2, Absolute Neuts (auto) 8.8 H, Absolute Lymphs (auto) 1.68, Nucleated RBC % 0, Sodium 139, Potassium 4.4, Chloride 107, Carbon Dioxide 21.1, Anion Gap 12, BUN 15, Creatinine 1.06, Estim Creat Clear Calc 61.22, Est GFR (MDRD) Non-Af 73, BUN/Creatinine Ratio 13.8, Glucose 125 H, Calcium 8.0
[2025-03-21 09:26] VITALS: BP 115/59; PULSE 104; RESP 18; TEMP 37.2; O2SAT 96
--- NOTE | 2025-03-21 09:50 | CASEMGMT ---
RN SELINA note: Intro role of CM to patient and [facility] form explained re: Observation status for treatment of prostate cancer.? Explained hospitalization will be paid per?his insurance policy for Outpatient billing?and condition will continue to be evaluated for Inpt necessity. Also let pt know that [facility] sends paper in the billing packet with their phone number if questions arise. Discussed Pharmacy section of [facility] form and self administered medication guideline.? Pt verbalizes understanding and does not have further questions. ?Form signed, copy made and placed in chart, and original given to pt. Amy BENAVIDEZN RN CM
[2025-03-21 11:08] LABS: Troponin T High Sensitivity 11 ng/L (<=22)
--- NOTE | 2025-03-21 11:59 | CASEMGMT ---
Noted plan for pt to dc with AUDELIA and montero at time of dc. RN CM into pt room, pt sitting up in bed with sig other present. Pt states he is nervous regarding his catheter and AUDELIA care at home. Pt is aware that the nurse will review this with him and should he still not feel comfortable at time of dc to notify RN SELINA. Pt states he is a visual learner and requested handouts be given. Pt states the night nurse started education with him. Spoke to pt nurse to make aware of this. Pt states he is typically indep at home, does not use AD. Pt sig other to assist as needed at home.
--- NOTE | 2025-03-21 13:00 | NURSING ---
Provided written educational material on both montero care and AUDELIA drain care and draining. per patient request. Also went over Proper care of montero catheter including cleaning emptying and keeping the bag below the level of the bladder. went over how to empty and care for AUDELIA drain.
[2025-03-21 13:30] VITALS: BP 109/61; PULSE 95; RESP 16; TEMP 37.1; O2SAT 98
[2025-03-21 20:15] VITALS: BP 134/64; PULSE 94; RESP 16; TEMP 36.6; O2SAT 95
[2025-03-22 02:35] VITALS: BP 133/66; PULSE 88; RESP 16; TEMP 36.6; O2SAT 96
[2025-03-22 06:58] LABS: Hematocrit 26.8 % (40-54); Hemoglobin 8.8 g/dL (13.0-16.5); Immature Granulocytes Count 0.040 X10^3/uL (0.0-0.0); Mean Corp Hgb Conc 32.8 g/dL (32-36); Mean Corpuscular Volume 95.0 fL (80-94); Mean Platelet Vol. 9.8 fl (6.2-12.0); NRBC Flagged by Analyzer 0 % (0-5); Platelet Count 207 K/mm3 (150-450); RBC Distribution Width CV 12.7 % (11.6-14.6); RBC Distribution Width SD 44.1 fl (35.1-43.9); Red Blood Count 2.82 M/mm3 (4.6-6.2); White Blood Count 10.1 K/mm3 (4.4-11.0)
--- NOTE | 2025-03-22 07:13 | DS.PCM_ITS ---
Providers Date of Admission: 03/20/25 Date of Discharge: 03/22/25 Primary Care Physician: Vivian Vance MD Reason For Visit: Lap Robotic Radical Prostatectomy Medications at Discharge Home Medications citalopram 10 mg tablet (Celexa) 10 mg PO DAILY 03/06/25 levothyroxine 100 mcg capsule 100 mcg PO DAILY 03/06/25 rosuvastatin 10 mg tablet (Crestor) 10 mg PO DAILY 03/06/25 docusate sodium 100 mg capsule (Colace) 100 mg PO BID #20 caps 03/20/25 oxycodone 5 mg tablet 5 mg PO Q6H PRN pain 7 days #20 tabs 03/20/25 ciprofloxacin HCl 500 mg tablet (Cipro) 500 mg PO DAILY 20 days #20 tabs 03/22/25 Hospital Course Operations - (robotic prostatectomy) Physical Exam Const alert and oriented x3 General Appearance: cooperative HEENT normocephalic and head/scalp atraumatic Eyes PERRL and EOMs intact bilaterally Neck supple, no JVD and no carotid bruits Resp normal respiratory effort, normal air movement and clear to auscultation bilaterally Cardio regular rate and no murmurs GI normal to inspection, nondistended, normoactive bowel sounds and soft to palpation Extremity normal capillary refill General Extremity: no tenderness to palpation of joints or extremities; Negative for edema Skin no rashes or lesions noted and no wounds General Skin Exam: no breakdown Neuro CN's II-XII intact bilaterally Psych affect normal Appearance: appropriate Weight / BMI Weight Weight: 87 kg Body Mass Index (BMI) 27.5 ABG / Lab / Microbiology Data 03/22/25 05:33 03/21/25 05:32 Laboratory: Laboratory Results - last 24 hr 03/21/25 09:18: Troponin T High Sens 11 03/22/25 05:33: WBC 10.1, RBC 2.82 L, Hgb 8.8 L, Hct 26.8 L, MCV 95.0 H, MCH 31.2, MCHC 32.8, RDW Std Deviation 44.1 H, RDW Coeff of Emeka 12.7, Plt Count 207, MPV 9.8, Immature Gran % (Auto) 0.400, Neut % (Auto) 58.6, Lymph % (Auto) 32.0, [place] % (Auto) 7.8, Eos % (Auto) 0.8, Baso % (Auto) 0.4, Absolute Neuts (auto) 5.9, Absolute Lymphs (auto) 3.23, Nucleated RBC % 0 D/C Instructions Return to work on: 04/24/25December shower in (days): 1 Weight Bearing Status: Weight bearing as tolerated Call your doctor if your incision/area has: Continuous Slow Oozing and Sudden Increased Bleeding Call your doctor if you observe: Fever of 101 or Higher, Inability to have a bowel movement and Uncontrolled pain Suture Line Care: Avoid Pulling/Pushing and Avoid Pinching/Bending Cleanse incision/area with: Soap & Water Catheter: Chisholm to leg bag and [place]m to large bag Drain: [place] Additional Dressing/Incision Instructions: AUDELIA drains to suction, drain daily and record amounts DC O2, CPAP, BIPAP Needs Home O2 Discharge instructions: No Please Follow Up With: Jeffery Candelario MD When: next week call office for appt. Meaningful Use Info Meaningful Use Meaningful Use Diagnoses (Choose all that apply): None applicable Discharge Plan Admission Admit Date/Time: 03/20/25 07:08 Primary Reason for Your Visit: Radical Prostatectomy Attending Provider: Jeffery Candelario Primary Care Provider: Vivian Vance Discharge Orders/Prescriptions Prescriptions: New docusate sodium [Colace] 100 mg capsule 100 mg PO BID Qty: 20 0RF oxycodone 5 mg tablet 5 mg PO Q6H PRN (Reason: pain) 7 Days Qty: 20 0RF ciprofloxacin HCl [Cipro] 500 mg tablet 500 mg PO DAILY 20 Days Qty: 20 0RF Continued levothyroxine 100 mcg capsule 100 mcg PO DAILY citalopram [Celexa] 10 mg tablet 10 mg PO DAILY rosuvastatin [Crestor] 10 mg tablet 10 mg PO DAILY Other Ambulatory Orders: 12 Lead EKG (Routine) Timeframe: 20250308 Location: None Selected Ordered By: Dr. Tam Green Referrals / Follow Up: Jeffery Candelario MD [Med Staff - Active Staff] - Vivian Vance MD [Primary Care Provider] - Disposition Disposition (needs filled in before D/C Order can be placed): Home, Self Care
--- NOTE | 2025-03-22 07:15 | DCINST_ITS ---
Discharge Instructions DC O2, CPAP, BIPAP needs Home O2 Discharge instructions: No Dressing / Incision Discharge Activity: Return to Normal Activity and May Not Drive (while taking narcotic pain medications.) Return to work on:: 04/24/25 May shower in (days): 1 Weight Bearing Status: Weight bearing as tolerated Dressing / Incision Call your doctor if your incision/area has: Continuous Slow Oozing and Sudden Increased Bleeding Call your doctor if you observe: Fever of 101 or Higher, Inability to have a bowel movement and Uncontrolled pain Suture Line Care: Avoid Pulling/Pushing and Avoid Pinching/Bending Cleanse incision/area with: Soap & Water Catheter: Ch[place]ol[place] to leg bag and Chishol[place] to large bag Drain: [place] Additional Dressing/Incision Instructions:: AUDELIA drains to suction, drain daily and record amounts Follow Up Care Please Follow Up With: Jeffery Candelario MD When: Call [phone] for an appointment Test Results: Test results from this visit will be discussed in further detail at your follow- up appointment, if applicable. Discharge Plan Admission Admit Date/Time: 03/20/25 07:08 Primary Reason for Your Visit: Radical Prostatectomy Attending Provider: Jeffery Candelario Primary Care Provider: Vivian Vance Discharge Orders/Prescriptions Prescriptions: New docusate sodium [Colace] 100 mg capsule 100 mg PO BID Qty: 20 0RF oxycodone 5 mg tablet 5 mg PO Q6H PRN (Reason: pain) 7 Days Qty: 20 0RF ciprofloxacin HCl [Cipro] 500 mg tablet 500 mg PO DAILY 20 Days Qty: 20 0RF Continued levothyroxine 100 mcg capsule 100 mcg PO DAILY citalopram [Celexa] 10 mg tablet 10 mg PO DAILY rosuvastatin [Crestor] 10 mg tablet 10 mg PO DAILY Other Ambulatory Orders: 12 Lead EKG (Routine) Timeframe: 20250308 Location: None Selected Ordered By: Dr. Tam Green Referrals / Follow Up: Jeffery Candelario MD [Med Staff - Active Staff] - Vivian Vance MD [Primary Care Provider] - Disposition Disposition (needs filled in before D/C Order can be placed): Home, Self Care
[2025-03-22 08:03] VITALS: BP 140/69; PULSE 74; RESP 16; TEMP 36.7; O2SAT 96
--- NOTE | 2025-03-22 10:50 | CASEMGMT ---
RN CM into pt room, pt sitting up in chair in no distress. Pt states his sig other did the [facility] drain this morning. Pt and sig other state they feel comfortable with AU[facility] and [facility] for homegoing. They have a friend who is a nurse who can assist if needed. Pt requests meds be delivered to pt room, tc to [facility] and made aware. Pt denies further needs at this time.
[2025-03-22 16:24] LABS: Anion Gap 12 (5-15); BUN 20 mg/dL (4-19); BUN/Creat Ratio 18.3 RATIO (10-20); Calcium,Total 7.9 mg/dL (7.6-11.0); Carbon Dioxide 20.7 mmol/L (21.0-32.0); Chloride 107 mmol/L (98-108); Estimated Creatinine Clearance 58.99 ml/min (50-250); Glucose 103 mg/dL (70-99); Potassium 3.9 mmol/L (3.3-5.1)
== END 2025-03-22 11:29 | disposition home or self-care (01) ==
LOC: SDC 08:32 → MS3 08:32
PROVIDERS: Anesthesiology; Nurse Anesthetist, Certified Registered; Admitting Provider Urology; PCP Internal Medicine; Referring Provider Urology; Visit Provider Urology
PROC: 0VT04ZZ Resection of Prostate, Percutaneous Endoscopic Approach (ICD-10-PCS; CPT 55866; principal; 2025-03-20 07:10)
DX: C61 Malignant neoplasm of prostate (principal); E78.00 Pure hypercholesterolemia, unspecified; Z79.890 Hormone replacement therapy; K21.9 Gastro-esophageal reflux disease without esophagitis; E07.9 Disorder of thyroid, unspecified; Z79.899 Other long term (current) drug therapy
CPT/HCPCS: 55866; 00865; 36415; 80048; 84443; 84484; 85014; 85018; 85025; 85027; 86850; 86900; 86901; 86920; 88309; 88341; 88342; 93005; 96361; 96365; 96366; 96372; 96375; 96376; 99221; A4216; G0378; J0744

== ENCOUNTER 2025-05-23 13:02 | Emergency (ER) | payer OTHER, SELFPAY ==
[2025-05-23 13:02] VITALS: BP 153/74; PULSE 83; RESP 16; TEMP 36.9; O2SAT 98; BMI 27.9
[2025-05-23 13:04] VITALS: BP 151/84; PULSE 69; RESP 19; TEMP 36.9; O2SAT 96
--- NOTE | 2025-05-23 13:08 | ED.VIS.CHEST ---
HPI History of Present Illness Chief Complaint: Chest Other [facility] Medical History Wears hearing aid Wears glasses Marijuana use Thyroid disease Prostate disease High cholesterol Gastric reflux Non-smoker History of stress test Hard of hearing Hypercholesteremia Depression PTSD (post-traumatic stress disorder) Arthritis Prostate CA Home Medications ?Medication ?Instructions ?Recorded ?Last Taken ?Type citalopram 10 mg tablet (Celexa) 10 mg PO DAILY 03/06/25 03/19/25 History levothyroxine 100 mcg capsule 100 mcg PO DAILY 03/06/25 03/19/25 History rosuvastatin 10 mg tablet (Crestor) 10 mg PO DAILY 03/06/25 03/19/25 History docusate sodium 100 mg capsule 100 mg PO BID #20 caps 03/20/25 Unknown Rx (Colace) oxycodone 5 mg tablet 5 mg PO Q6H PRN pain 7 days #20 03/20/25 Unknown Rx tabs ciprofloxacin HCl 500 mg tablet 500 mg PO DAILY 20 days #20 tabs 03/22/25 Unknown Rx (Cipro) azithromycin 500 mg tablet 500 mg PO DAILY 10 days #10 tabs 05/23/25 Unknown Rx cefdinir 300 mg capsule 600 mg (2 x 300 mg) PO DAILY 10 05/23/25 Unknown Rx days #20 caps Allergy/AdvReac Type Severity Reaction Status Date / Time No Known Allergies Allergy Verified 05/23/25 13:04 Surgical History History of appendectomy Social History Smoking Status: Never smoker EXAM Physical Exam Const Vital Signs: 05/23/25 13:02 05/23/25 13:04 05/23/25 14:01 Temperature 98.4 F 98.4 F Temperature Source Oral Oral Pulse Rate 83 69 Respiratory Rate 16 19 H Respiratory Effort Normal Non-Labored Blood Pressure 153/74 H 151/84 H Blood Pressure Mean 100 106 Pulse Ox 98 96 Oxygen Delivery Method Room Air Room Air 05/23/25 15:02 Temperature Temperature Source Pulse Rate 72 Respiratory Rate 20 H Respiratory Effort Blood Pressure 145/82 H Blood Pressure Mean 103 Pulse Ox 97 Oxygen Delivery Method Room Air MDM MDM MDM Narrative Medical decision making narrative: HISTORY OF PRESENT ILLNESS: Chief complaint: Chest pain 74-year-old male history of prostate cancer, hyperlipidemia, presents with right-sided chest pain. He notes is worse with deep breath. He notes it is worse with movement. He states he had a cough and cold symptoms for 3 weeks. He also states REVIEW OF SYSTEMS: Pertinent positives: Chest pain, cough Pertinent negatives: Leg swelling PHYSICAL EXAM: Nursing triage notes reviewed, Vital signs reviewed Constitutional: [facility] HENT: MMM Eyes: Pupils equal round and reactive to light, Extraocular muscles intact Neck: No stridor, no JVD, full neck ROM Lungs: Clear to auscultation, No wheezing or rales. No increased work of breathing, no conversational dyspnea, no accessory muscle use, no nasal flaring. No respiratory distress noted Heart: Regular rate and rhythm, No murmurs, No rubs and No gallops, 2+ distal pulses (radial, femoral, posterior tibial) in all extremities Abdomen: Soft, there is no tenderness, negative Robledo sign, no rigidity, rebound or guarding, no obvious peritoneal signs, no palpable pulsatile abdominal masses, no auscultated abdominal bruit : No CVAT Extremities: No edema Neuro: No new focal neurological deficits, cranial nerves II through XII intact, 5/5 strength in all present extremities. Intact sensation to light touch in all present extremities, 2+ reflexes bilateral patella tendons. Skin: No rash or lesions noted MEDICAL DECISION MAKING: Chief Complaint: please see [facility] External records reviewed: Reviewed prior imaging study Factors affecting care: As per [facility] Social determinants of health: none History obtained from others: none Consults: none [facility] Narrative: The patient was initially hemodynamically stable, afebrile and nontoxic-appearing. Examwith TTP of right rib margin. No right upper quadrant tenderness, negative Robledo sign I considered the following differential diagnosis: Pneumonia, COVID, PE, ACS, arrhythmia, anemia, electrolyte disturbance I obtained a broad lab and imaging evaluation to further determine if the patient was suffering from a life-threatening etiology. Given report of prostate cancer and parotic pain I obtained a CT of the chest Initially treated patient with IV Toradol ALL IMAGES (IF OBTAINED) HAVE BEEN PERSONALLY REVIEWED AND INTERPRETED BY MYSELF. EKG with normal sinus rhythm rate 76, left ax deviation, normal intervals, no STEMI. No sign of right heart strain CTA chest showed evidence of PNA. NO PE CMP without evidence of acute kidney injury, significant electrolyte abnormality, anion gap to suggest end organ hypo-perfusion, no evidence of metabolic acidosis with a normal bicarbonate, no evidence of hepatobiliary obstructive pathology. Lipase is wnl indicating no pancreatic inflammation. CBC without leukocytosis suggestive of inflammation, no anemia or thrombocytopenia CURB 65 low risk. Patient ambulated in the emergency per without significant exertional hypoxia. He is appropriate for discharge home with cefdinir and azithromycin. First dose given here in the ED. Strict return precautions were discussed. The patient and/or family, caregivers express understanding. The patient and/or family, caregivers agrees with the plan. Shared decision making: I will have a discussion with the patient and or visitors regarding risk/benefits of further testing or admission. They will be made aware of of the risk/benefits inherent in this decision they will be given the opportunity to voice understanding. Total critical care time today provided was at least 0 minutes. This excludes separately billable procedures. Critical care time (if documented) is secondary to the patient having high probability of clinically significant/life threatening deterioration in the patient's condition which required my urgent intervention. Impression: 1. Chest pain 2. Community Acquired Pneumonia 3. History of prostate cancer Dispo: discharge home This note was generated with [employer] dictation software. It may contain incorrect words, spelling, and punctuation that were not noted in review of the chart prior to signing. Lab Data Labs: Laboratory Results - last 24 hr 05/23/25 13:55 WBC 8.2 RBC 4.57 L Hgb 13.7 Hct 42.0 MCV 91.9 MCH 30.0 MCHC 32.6 RDW Std Deviation 42.0 RDW Coeff of Emeka 12.4 Plt Count 294 MPV 9.7 Immature Gran % (Auto) 0.200 Neut % (Auto) 59.0 Lymph % (Auto) 29.6 [place] % (Auto) 9.9 Eos % (Auto) 0.7 Baso % (Auto) 0.6 Absolute Neuts (auto) 4.8 Absolute Lymphs (auto) 2.42 Nucleated RBC % 0 Sodium 138 Potassium 4.1 Chloride 102 Carbon Dioxide 23.3 Anion Gap 12 BUN 15 Creatinine 0.97 Estim Creat Clear Calc 72.56 Est GFR (MDRD) Non-Af 81 BUN/Creatinine Ratio 15.8 Glucose 86 Calcium 9.4 Total Bilirubin 0.62 AST 20 ALT 17 Alkaline Phosphatase 110 Troponin T High Sens 9 D Total Protein 7.4 Albumin 4.1 Globulin 3.2 Albumin/Globulin Ratio 1.3 Lipase 32 Radiography Diagnostic Testing: Clinical Impression(s) from Imaging Studies Chest CTA 05/23/25 13:31 IMPRESSION: No demonstrated PE, or thoracic aortic aneurysm or dissection Chronic interstitial changes in both lung jenkins with chronic bronchitis, right pleural effusion and atelectasis and multifocal pneumonitis/early infiltrate in the right middle lobe No suspicious adenopathy Degenerative bony changes Reading Location: [facility] Discharge Plan Triage Chief Complaint: Chest Other ED Provider: Tyler Wheeler Dx/Rx/DC Orders Instructions: ED Pneumonia (Adult) Prescriptions: New cefdinir 300 mg capsule 600 mg PO DAILY 10 Days Qty: 20 0RF azithromycin 500 mg tablet 500 mg PO DAILY 10 Days Qty: 10 0RF No Action levothyroxine 100 mcg capsule 100 mcg PO DAILY citalopram [Celexa] 10 mg tablet 10 mg PO DAILY rosuvastatin [Crestor] 10 mg tablet 10 mg PO DAILY docusate sodium [Colace] 100 mg capsule 100 mg PO BID Qty: 20 0RF oxycodone 5 mg tablet 5 mg PO Q6H PRN (Reason: pain) 7 Days Qty: 20 0RF ciprofloxacin HCl [Cipro] 500 mg tablet 500 mg PO DAILY 20 Days Qty: 20 0RF Primary Care Provider: Vivian Vance Referrals: Vivian Vance MD [Primary Care Provider, Internal Medicine] Activity Restrictions/Additional Instructions: Thank you for trusting us with your care today! Your CT scan of your chest was consistent with pneumonia. This is treated with antibiotics. Please take antibiotics as prescribed. Prescribed 2 antibiotics to cover all possible causes of pneumonia and to assure that you get better. Please take Tylenol (2 pills, 650 mg), ibuprofen (2 pills, 400 mg) every 6 hours as needed for pain and fever control. Please return to the emergency department if your symptoms change or worsen. Please follow with your primary care physician for further outpatient evaluation and management. Print Language: Kittitian Disposition Disposition: Home, Self Care
--- NOTE | 2025-05-23 13:10 | EKG12_ITS ---
Test Reason : R SIDED CP Blood Pressure : */* mmHG Vent. Rate : 76 BPM Atrial Rate : 76 BPM P-R Int : 182 ms QRS Dur : 82 ms QT Int : 368 ms P-R-T Axes : 52 1 32 degrees QTcB Int : 414 ms Normal sinus rhythm Septal infarct , age undetermined Abnormal ECG Confirmed by PETER PERKINS, DONAVON ([id number]), film editor supervisor JULIAN LOMAS ([id number]) on 05/27/2025 6:04:43 AM Referred By: LUCIANA/ANASTACIA Confirmed By: DONAVON GREEN MD
--- NOTE | 2025-05-23 13:31 | CT_ITS ---
PROCEDURE: CTA CHEST W/WO CONTRAST 05/23/2025 REASON FOR EXAM: Atypical chest pain TECHNIQUE: Procedure Code: [id number] Modality: CT Procedure: CTA CHEST W/WO CONTRAST Multiplanar Sagittal and Coronal images were obtained. CONTRAST: Isovue 370 VOLUME: 100 mL One or more dose reduction techniques were used (e.g., Automated exposure control, adjustment of the mA and/or kV according to patient size, use of iterative reconstruction technique). RADIATION DOSE SUMMARY: CTDlvol: 24.37 mGy DLP: 428.04 mGycm COMPARISON: None # of known CTs in the past 12 months: 0 # of known Cardiac Nuclear Medicine Studies in the past 12 months: 0 FINDINGS: The pulmonary arteries enhance avidly without evidence of low-density filling defects to suspect PE. Peripheral calcifications in the thoracic aorta without aneurysm or dissection. No suspicious axillary or mediastinal adenopathy. Calcified coronary vessels. Lung windows show chronic interstitial changes in both lung jenkins with evidence of chronic bronchitis, multifocal pneumonitis particularly in the right middle lobe, small right pleural effusion and dependent atelectasis. Limited cuts through the upper abdomen do not show a suspicious abnormality. Bony structures show degenerative change CT/CTA Chest W/WO Contrast IMPRESSION: No demonstrated PE, or thoracic aortic aneurysm or dissection Chronic interstitial changes in both lung jenkins with chronic bronchitis, right pleural effusion and atelectasis and multifocal pneumonitis/early infiltrate in the right middle lobe No suspicious adenopathy Degenerative bony changes Reading Location: [id number]
[2025-05-23 14:18] LABS: AST(SGOT) 20 U/L (<=37); Alanine Aminotransfer ALT/SGPT 17 U/L (<=46); Albumin, Serum 4.1 g/dL (3.4-4.8); Alkaline Phosphatase 110 U/L (40-129); Anion Gap 12 (5-15); BUN 15 mg/dL (4-19); BUN/Creat Ratio 15.8 RATIO (10-20); Calcium,Total 9.4 mg/dL (7.6-11.0); Carbon Dioxide 23.3 mmol/L (21.0-32.0); Chloride 102 mmol/L (98-108); Estimated Creatinine Clearance 72.56 ml/min (50-250); Globulin 3.2 g/dL (2.2-4.2); Glucose 86 mg/dL (70-99); Lipase 32 U/L (13-75); Potassium 4.1 mmol/L (3.3-5.1)
[2025-05-23 14:32] LABS: Troponin T High Sensitivity 9 ng/L (<=22)
[2025-05-23 15:02] VITALS: BP 145/82; PULSE 72; RESP 20; O2SAT 97
[2025-05-23 15:19] LABS: Hematocrit 42.0 % (40-54); Hemoglobin 13.7 g/dL (13.0-16.5); Immature Granulocytes Count 0.020 X10^3/uL (0.0-0.0); Mean Corp Hgb Conc 32.6 g/dL (32-36); Mean Corpuscular Volume 91.9 fL (80-94); Mean Platelet Vol. 9.7 fl (6.2-12.0); NRBC Flagged by Analyzer 0 % (0-5); Platelet Count 294 K/mm3 (150-450); RBC Distribution Width CV 12.4 % (11.6-14.6); RBC Distribution Width SD 42.0 fl (35.1-43.9); Red Blood Count 4.57 M/mm3 (4.6-6.2); White Blood Count 8.2 K/mm3 (4.4-11.0)
[2025-05-23 15:23] VITALS: O2SAT 95
[2025-05-23 16:28] VITALS: BP 135/70; PULSE 78; RESP 16; TEMP 36.6; O2SAT 96
== END 2025-05-23 16:29 | disposition home or self-care (01) ==
PROVIDERS: Emergency Provider Emergency Medicine; PCP Internal Medicine; Visit Provider Emergency Medicine
DX: R07.89 Other chest pain (principal); J18.9 Pneumonia, unspecified organism; E78.00 Pure hypercholesterolemia, unspecified; K21.9 Gastro-esophageal reflux disease without esophagitis; Z85.46 Personal history of malignant neoplasm of prostate
CPT/HCPCS: 71275; 80053; 83690; 84484; 85025; 87631; 93005; 96374; 99285; Q9967; A4216

== ENCOUNTER → 2025-06-04 | Outpatient (CLI) | payer MEDICARE, SELFPAY ==
[2025-06-04 16:52] LABS: PSA,Total- Diagnostic < 0.02 ng/mL (0.00-4.00)
== END | disposition home or self-care (01) ==
LOC: LAB 15:14
PROVIDERS: PCP Internal Medicine; Referring Provider Urology; Visit Provider Urology
DX: C61 Malignant neoplasm of prostate (principal)
CPT/HCPCS: 36415; 84153